=== PATIENT | male | born 1985 | race African-American/Black ===

== ENCOUNTER 2019-08-21 17:43 | Emergency (ER) | payer OTHER ==
[~2019-08-21] VITALS: Ht 185.4 cm; Wt 81.7 kg
[2019-08-21 18:55] LABS: URINE BILIRUBIN NEGATIVE (Negative); URINE BLOOD NEGATIVE (Negative); URINE CLARITY CLEAR; URINE COLOR YELLOW; URINE GLUCOSE-RANDOM* NEGATIVE (Negative); URINE KETONES NEGATIVE (Negative); URINE LEUKOCYTES-REFLEX NEGATIVE (Negative); URINE NITRITE-REFLEX NEGATIVE (Negative); URINE PROTEIN (DIPSTICK) NEGATIVE (Negative); URINE UROBILINOGEN 0.2 E.U./dl (0.2-1.0)
[2019-08-21 20:23] LABS: ABSOLUTE NEUTROPHILS 5.1 thou/uL (1.4-8.2); BASOPHILS 0.6 % (0.0-2.0); EOSINOPHILS 3.7 % (0.0-3.0); HEMATOCRIT 46.3 % (42.0-52.0); HEMOGLOBIN 16.1 gm/dL (14.0-18.0); LYMPHOCYTES 26.2 % (24.0-44.0); MCH 33.1 pg (26.0-34.0); MCHC 34.8 g/dL (28.0-37.0); PLATELET COUNT 205 thou/uL (150-400); POLYS 58.5 % (36.0-66.0); RBC 4.87 mil/uL (4.50-6.00); RDW 12.4 % (10.5-14.5); WBC 8.7 thou/uL (4.0-11.0)
[2019-08-21 20:35] LABS: CALCIUM 9.6 mg/dL (8.5-10.1); CREATININE 1.1 mg/dL (0.7-1.3); POTASSIUM 3.7 mmol/L (3.5-5.1)
[2019-08-21 20:39] LABS: DIRECT BILIRUBIN 0.2 mg/dL (<0.1-0.3); TOTAL BILIRUBIN 0.6 mg/dL (<0.1-1.0); TOTAL PROTEIN 7.8 g/dL (6.4-8.2)
[2019-08-21] MEDS ORDERED: BENTYL 20 MG TA20 M1 PO (21:18)
[2019-08-21] MEDS ORDERED: PROBIOTIC1 EAC7 PO (21:18)
[2019-08-21 21:26] VITALS: BP 108/65
--- NOTE | 2019-08-24 11:00 | EKG ---
[facility] [email or web address] [facility] [place] [address] ELECTROCARDIOGRAM REPORT Name: CASTRO ELDER [facility] [id number] Admission: 08/21/19 Attend Phys: Discharge: 08/21/19 Date of : 87 Report #: [id number] THIS REPORT FOR: //name// [facility] ED Test Date: 2019-08-21 Test Time: 20:43:41 Pat Name: CASTRO ELDER Department: Room: Gender: M Medical Imaging Technologist: LIO : 1985 Requested By: Stacie Hernandez Order Number: [id number] MD: Joaquín Corrales Measurements Intervals [place] Rate: 58 P: 67 DE: 184 QRS: 64 QRSD: 88 T: 38 QT: 352 QTc: 346 Interpretive Statements Sinus rhythm ST elvation lateral leads with evidence of early repolarization. Electronically Signed On 08-22-2019 7:51:27 CDT by Audie Oscar Electronically Signed On 08-24-2019 11:00:32 CDT by Joaquín Corrales [email or web address] <ELECTRONICALLY SIGNED> By: Joaquín Corrales MD, [facility] 08/24/19 1100 [id number] 42 Joaquín Corrales MD, [facility] /EPI
== END 2019-08-21 21:31 | disposition home or self-care (01) ==
LOC: ER 17:43
PROVIDERS: Emergency Medicine; Nurse Practitioner Family
DX: R10.9 Unspecified abdominal pain (principal); R19.7 Diarrhea, unspecified

== ENCOUNTER 2019-08-25 14:39 | Emergency (ER) | payer OTHER ==
[~2019-08-25] VITALS: Ht 185.4 cm; Wt 81.7 kg
[~2019-08-25 14:39] MED LIST: BENTYL 20 MG TA20 M1 PO; PROBIOTIC1 EAC7 PO
[2019-08-25 15:25] LABS: ABSOLUTE NEUTROPHILS 3.4 thou/uL (1.4-8.2); BASOPHILS 0.9 % (0.0-2.0); EOSINOPHILS 4.6 % (0.0-3.0); HEMATOCRIT 43.1 % (42.0-52.0); HEMOGLOBIN 15.2 gm/dL (14.0-18.0); LYMPHOCYTES 29.8 % (24.0-44.0); MCH 33.3 pg (26.0-34.0); MCHC 35.2 g/dL (28.0-37.0); MCV 94.7 fL (80.0-100.0); MONOCYTES 10.1 % (1.0-8.0); PLATELET COUNT 174 thou/uL (150-400); POLYS 54.6 % (36.0-66.0); RBC 4.55 mil/uL (4.50-6.00); RDW 12.2 % (10.5-14.5); WBC 6.2 thou/uL (4.0-11.0)
[2019-08-25 15:32] LABS: CALCIUM 9.2 mg/dL (8.5-10.1); POTASSIUM 3.7 mmol/L (3.5-5.1)
[2019-08-25 15:38] LABS: ALBUMIN 3.8 g/dL (3.4-5.0); TOTAL BILIRUBIN 0.9 mg/dL (<0.1-1.0); TOTAL PROTEIN 7.4 g/dL (6.4-8.2)
[2019-08-25 16:05] LABS: URINE BILIRUBIN NEGATIVE (Negative); URINE BLOOD NEGATIVE (Negative); URINE CLARITY CLEAR; URINE COLOR YELLOW; URINE GLUCOSE-RANDOM* NEGATIVE (Negative); URINE KETONES NEGATIVE (Negative); URINE LEUKOCYTES-REFLEX NEGATIVE (Negative); URINE NITRITE-REFLEX NEGATIVE (Negative); URINE PROTEIN (DIPSTICK) NEGATIVE (Negative); URINE UROBILINOGEN 0.2 E.U./dl (0.2-1.0)
[2019-08-25] MEDS ORDERED: RECTICARE30 GM TOP (16:54)
[2019-08-25] MEDS ORDERED: MIRALAX17 GM PO (16:54)
[2019-08-25] MEDS ORDERED: PROCTOFOAM15 GM TOP (16:54)
[2019-08-25 17:38] VITALS: BP 103/70
== END 2019-08-25 17:39 | disposition home or self-care (01) ==
LOC: ER 14:39
PROVIDERS: Physician Assistant
DX: K64.4 Residual hemorrhoidal skin tags (principal); K59.00 Constipation, unspecified

== ENCOUNTER 2019-10-06 10:49 | Emergency (ER) | payer OTHER ==
[~2019-10-06] VITALS: Ht 180.3 cm; Wt 80.7 kg
[~2019-10-06 10:49] MED LIST changes: +MIRALAX17 GM PO; +PROCTOFOAM15 GM TOP; +RECTICARE30 GM TOP
[2019-10-06 12:26] VITALS: BP 132/87
== END 2019-10-06 12:35 | disposition home or self-care (01) ==
LOC: ER 10:49
DX: R04.0 Epistaxis (principal)

== ENCOUNTER 2021-01-26 09:15 | Emergency (ER) | payer OTHER ==
[~2021-01-26] VITALS: Ht 185.4 cm; Wt 86.2 kg
[2021-01-26 09:17] VITALS: BP 111/80
[2021-01-26] MEDS ORDERED: CLINDAMYCIN HC300 MG PO (09:51)
== END 2021-01-26 10:03 | disposition home or self-care (01) ==
LOC: ER 09:15
DX: N50.9 Disorder of male genital organs, unspecified (principal)

== ENCOUNTER 2021-02-21 12:14 | Emergency (ER) | payer OTHER ==
[~2021-02-21] VITALS: Ht 182.9 cm; Wt 88.5 kg
[~2021-02-21 12:14] MED LIST changes: +CLINDAMYCIN HC300 MG PO
[2021-02-21] MEDS ORDERED: NORCO 10-325 T1 EACH PO (13:45)
[2021-02-21 14:15] VITALS: BP 116/84
== END 2021-02-21 14:22 | disposition home or self-care (01) ==
LOC: ER 12:14
DX: S69.91XA Unspecified injury of right wrist, hand and finger(s), initial encounter (principal); M20.011 Mallet finger of right finger(s); Z79.2 Long term (current) use of antibiotics; Y04.8XXA Assault by other bodily force, initial encounter; Y93.89 Activity, other specified; Y92.89 Other specified places as the place of occurrence of the external cause; Y99.8 Other external cause status